=== PATIENT | female | born 1955 | race Caucasian/White ===

== ENCOUNTER 2021-03-27 13:55 | Inpatient (IN) | payer BC ==
--- NOTE | 2021-03-27 14:08 | EDM.PDOC ---
ED HPI GENERAL MEDICAL PROBLEM - General Chief Complaint: Trauma Stated Complaint: FELL OFF LADDER Time Seen by Provider: 03/27/21 13:55 Source of Information: Reports: Patient, EMS History Limitations: Reports: No Limitations - History of Present Illness INITIAL COMMENTS - FREE TEXT/NARRATIVE: 65-year-old female was on a ladder, reaching up to "grab some tape", and fell backwards off the ladder landing on her back onto a carpeted cement floor. She struck the back of her head hard, as well as the posterior aspect of both elbows. According to the she was unconscious for up to 3 minutes. EMS was called, she was C-collared and brought in for evaluation, she is now alert and oriented with a GCS of 15. Her main complaint is posterior head pain, mild neck stiffness, and soreness especially on the posterior aspect of the left elbow. Denies any shortness of breath, chest pain, abdominal pain, lower extremity pain. She has had 1 emesis and received Zofran in route. Onset: Sudden Duration: Hour(s): (Within the last hour) Location: Reports: Head, Neck, Upper Extremity, Left, Upper Extremity, Right Associated Symptoms: Reports: Headaches, Nausea/Vomiting 2 Pain Score (Numeric/FACES): 2 Headache Pain Score (Numeric/FACES): 1 neck Pain Score (Numeric/FACES): 1 - Related Data Allergies Allergy/AdvReac Type Severity Reaction Status Date / Time ciprofloxacin Allergy Severe Anaphylactic Verified 03/28/21 08:15 Shock codeine Allergy Severe Anaphylactic Verified 03/27/21 18:59 Shock hydrocodone [Hydrocodone] Allergy Severe Anaphylactic Verified 03/27/21 18:59 Shock hydrocodone bitartrate Allergy Severe Anaphylactic Verified 03/27/21 18:59 [From Vicodin] Shock hydromorphone HCl Allergy Severe Anaphylactic Verified 03/27/21 18:59 [From Dilaudid] Shock morphine Allergy Severe Anaphylactic Verified 03/27/21 18:59 Shock Home Meds: Home Meds Ascorbate Calcium/Bioflavonoid [Pretty-C 500 MG] 1 tab PO BID 04/08/20 [History] Aspirin [Halfprin] 81 mg PO DAILY 04/08/20 [History] Calcium Carb,Cit/D3/Phytostrol [Citracal D + Heart Health] 1 tab PO BID 04/08/20 [History] Cholecalciferol (Vitamin D3) [Vitamin D3] 5,000 unit PO BID 04/08/20 [History] Chondroitin/Glucosamine [Glucosamine-Chondroitin] 2 cap PO DAILY 04/08/20 [History] Citalopram Hydrobromide [Celexa] 40 mg PO DAILY 04/08/20 [History] Cyclobenzaprine HCl 10 mg PO TID PRN 04/08/20 [History] Docusate Sodium [Colace] 100 mg PO DAILY 04/08/20 [History] Levothyroxine [Synthroid] 50 mcg PO DAILY 04/08/20 [History] Lysine HCl [l-Lysine] 500 mg PO BID 04/08/20 [History] Niacin [Niacor] 500 mg PO BID 04/08/20 [History] [place] Red 1 tab PO DAILY 04/08/20 [History] Turmeric Root Extract [Turmeric] 500 mg PO BID 04/08/20 [History] Ubidecarenone [Coenzyme Q10] 200 mg PO DAILY 04/08/20 [History] Vitamin B Complex [Ultra B-100 Complex] 1 each PO DAILY 04/08/20 [History] atorvaSTATin Calcium [Atorvastatin Calcium] 10 mg PO BEDTIME 04/08/20 [History] sulfaSALAzine [Azulfidine] 1,500 mg PO DAILY 04/08/20 [History] sulfaSALAzine [Azulfidine] 1,000 mg PO QPM 03/28/21 [History] Past Medical History [facility] History: Reports: Musculoskeletal History: Reports: Other (See Below) Other Musculoskeletal History: left knee pain. right shoulder pain - Past Surgical History Musculoskeletal Surgical History: Reports: None Social & Family History - Caffeine Use Caffeine Use: Reports: Soda Review of Systems - Review of Systems Review Of Systems: See Below Eyes: Denies: Vision Change Ears: Reports: Dizziness Mouth/Throat: Reports: No Symptoms Respiratory: Denies: Shortness of Breath Cardiovascular: Denies: Chest Pain GI/Abdominal: Reports: Nausea, Vomiting. Denies: Abdominal Pain Musculoskeletal: Reports: Neck Pain (Mild diffuse neck discomfort), Other (Bilateral elbow pain, left worse than the right.) Skin: Reports: Other (Abrasions are present on both elbows, left greater than right) Neurological: Reports: Confusion, Dizziness, Headache, Other (Loss of consciousness for up to 3 minutes after head injury) Psychiatric: Reports: No Symptoms ED EXAM, GENERAL - Physical Exam Exam: See Below Exam Limited By: No Limitations General Appearance: Alert, No Apparent Distress, Other (Looks uncomfortable but not distressed, currently oriented with a GCS of 15) Eye Exam: Bilateral Eye: EOMI, PERRL Ears: Normal TMs Head: Other (Patient has a 6 cm fairly deep, somewhat irregular laceration on the left occipital scalp) Neck: Other (Mild tenderness to palpation in range of motion, no focal tenderness) Respiratory/Chest: No Respiratory Distress, Lungs Clear Cardiovascular: Regular Rate, Rhythm GI/Abdominal: Soft, Non-Tender Extremities: Other (Patient has abrasion and some mild swelling over the olecranon on the left elbow, no significant bony tenderness or deformity. There is also a small abrasion on the right elbow, also no bony tenderness) Neurological: Alert, Oriented, Slow to Respond Psychiatric: Flat Affect Skin Exam: Warm, Dry, Other (Skin is otherwise normal besides the abrasions on the elbows and the fairly large laceration on the scalp) Course - Vital Signs Last Recorded V/S: Last Vital Signs Temp 98.8 F 03/28/21 08:00 Pulse 82 03/28/21 10:00 Resp 18 03/28/21 10:00 BP 141/79 H 03/28/21 10:00 Pulse Ox 95 03/28/21 10:00 - Orders/Labs/Meds Orders: Medication Orders Acetaminophen (Acetaminophen 500 Mg Tab) 1,000 mg PO Q4H PRN PRN Reason: Pain Last Admin: 03/28/21 08:15 Dose: 1,000 mg Documented by: Admin: 03/27/21 20:54 Dose: 1,000 mg Documented by: ANGELA Atorvastatin Calcium (Atorvastatin 10 Mg Tab) 10 mg PO BEDTIME [facility] Citalopram Hydrobromide (Citalopram 20 Mg Tab) 40 mg PO DAILY [facility] Last Admin: 03/28/21 08:12 Dose: 40 mg Documented by: GERMANIA Levothyroxine Sodium (Levothyroxine 50 Mcg Tab) 50 mcg PO ACBREAKFAST [facility] Last Admin: 03/28/21 08:12 Dose: 50 mcg Documented by: GERMANIA Loratadine (Loratadine 10 Mg Tab) 10 mg PO DAILY [facility] Last Admin: 03/28/21 08:15 Dose: Not Given Documented by: GERMANIA Sulfasalazine (Sulfasalazine 500 Mg Tab) 1,500 mg PO DAILY [facility] Last Admin: 03/28/21 09:29 Dose: 1,500 mg Documented by: GERMANIA Sulfasalazine (Sulfasalazine 500 Mg Tab) 1,000 mg PO QPM [facility] Meds: Medications Generic Name Dose Route Start Last Admin Trade Name Jose PRN Reason Stop Dose Admin Acetaminophen 1,000 mg 03/27/21 20:14 03/28/21 08:15 Acetaminophen 500 Mg Tab PO 1,000 mg Q4H PRN Administration Pain Atorvastatin Calcium 10 mg 03/28/21 21:00 Atorvastatin 10 Mg Tab PO BEDTIME [facility] Citalopram Hydrobromide 40 mg 03/28/21 09:00 03/28/21 08:12 Citalopram 20 Mg Tab PO 40 mg DAILY [facility] Administration Levothyroxine Sodium 50 mcg 03/28/21 07:30 03/28/21 08:12 Levothyroxine 50 Mcg Tab PO 50 mcg ACBREAKFAST [facility] Administration Loratadine 10 mg 03/28/21 09:00 03/28/21 08:15 Loratadine 10 Mg Tab PO Not Given DAILY [facility] Sulfasalazine 1,500 mg 03/28/21 09:00 03/28/21 09:29 Sulfasalazine 500 Mg Tab PO 1,500 mg DAILY [facility] Administration Sulfasalazine 1,000 mg 03/28/21 17:00 Sulfasalazine 500 Mg Tab PO QPM [facility] Discontinued Medications Generic Name Dose Route Start Last Admin Trade Name Jose PRN Reason Stop Dose Admin Aspirin 81 mg 03/28/21 09:00 03/28/21 08:13 Aspirin 81 Mg Tab.Ec PO 81 mg DAILY [facility] Administration Citalopram Hydrobromide 40 mg 03/27/21 16:38 03/27/21 19:55 Citalopram 20 Mg Tab PO 03/27/21 16:39 Not Given ONETIME ONE Citalopram Hydrobromide Confirm 03/27/21 21:19 03/27/21 22:11 Citalopram 20 Mg Tab Administered 03/27/21 21:20 40 mg Dose Administration 40 mg .ROUTE .STK-MED ONE Metoclopramide HCl 5 mg 03/27/21 16:33 03/27/21 16:42 Metoclopramide 10 Mg/2 Ml Sdv IVPUSH 03/27/21 16:34 5 mg ONETIME ONE Administration Non-Formulary Medication 40 mg 03/27/21 17:45 03/27/21 22:13 Citalopram Hydrobromide [Celexa] PO Not Given DAILY [facility] Ondansetron HCl 4 mg 03/27/21 14:57 03/27/21 15:05 Ondansetron 4 Mg/2 Ml Sdv IVPUSH 03/27/21 14:58 4 mg ONETIME ONE Administration Sulfasalazine 1,500 mg 03/27/21 16:38 03/27/21 19:55 Sulfasalazine 500 Mg Tab PO 03/27/21 16:39 Not Given ONETIME ONE - Re-Assessments/Exams Free Text/Narrative Re-Assessment/Exam: 03/27/21 15:[address], 4 mg of additional Zofran was given and a CT of the head and cervical spine was ordered. On return from CT scan, the original screen of the cervical spine looked negative so cervical collar was removed. Head CT results are as follows IMPRESSION: Right intraparenchymal contrecoup injury related to large left high posterior parietal scalp laceration and hematoma. Small amount of subarachnoid hemorrhage in the right sylvian cistern. Mild right mid and anterior parietal acute subdural hematoma. Mild right inferior frontal hemorrhagic contusion with mild inferior frontal subdural hematoma. Mild anterior falcine and right tentorial subdural hematomas. No sign of any mass effect related to these hemorrhages. Images were sent to [facility] to be evaluated and reviewed by neuros urgery. Hair was trimmed back from the edges of the laceration, 1% lidocaine with epinephrine was used to thoroughly anesthetize the laceration on her scalp, and normal saline was used to flush the clots out of the laceration and clean the edges of the wound. Four 4-0 Vicryl sutures were used to close the subcutaneous tissue, and 1 running 4-0 suture with 8 interlocking sutures were used to close the outside of the laceration. A mild pressure dressing was applied, still awaiting neurosurgery evaluation. Patient remained stable. Cervical spine CT results negative. Neurosurgery recommended observation and repeat CT scan tomorrow. Dr. Spangler accepted admission to hospitalist service Departure - Departure Time of Disposition: 18:14 Disposition: Admitted As Inpatient 67 Clinical Impression: Concussion with brief (less than one hour) loss of consciousness, Cerebral h emorrhage, Subdural hemorrhage Scalp laceration Qualifiers: Encounter type: initial encounter Qualified Code(s): S01.01XA - Laceration without foreign body of scalp, initial encounter - Discharge Information
[2021-03-27] MEDS ORDERED: Ondansetron 4 MG/2 ML SDV IVPUSH ONE (14:57)
--- NOTE | 2021-03-27 14:58 | CRLCT ---
For Patients: As a result of the Century Cures Act, medical imaging exams and procedure reports are released immediately into your electronic medical record. You may view this report before your referring provider. If you have questions, please contact your health care provider. INDICATION: Pain after fall from ladder. COMPARISON: None available. TECHNIQUE: CT examination of the head was performed with 2 and 3 mm thick axial and 2 mm thick sagittal and coronal sections without intravenous contrast. Images were obtained from the vertex of the skull through the skull base, and I examined the images with the brain and bone windows. Please note that all CT scans at this facility use dose modulation, iterative reconstruction, and/or weight-based dosing when appropriate to reduce radiation dose to as low as reasonably achievable. FINDINGS: : There is large laceration and hematoma involving the left posterior parietal scalp with gas and blood in the external subgaleal space. There is no sign of fracture of the underlying brain. There is no sign of injury to the brain immediately deep to the laceration and hematoma. There is a small amount of subarachnoid hemorrhage located within the posterior and medial right sylvian cistern. This produces no mass effect. There is a mild acute right mid parietal and right frontal subdural hematoma, measuring up to 3 millimeters in greatest thickness, producing no mass effect. There are small, acute anterior falx and right tentorial subdural hematomas, producing mass effect. There is minimal high density in the inferior medial right frontal lobe, overlying the right orbital roof, findings of a minimal hemorrhagic contusion. There is also subdural blood in this region. There is no sign of any mass effect from these hemorrhages. The ventricles and sulci are normal in appearance for the patient`s age. The visualized portions of the orbits are normal in appearance. The visualized portions of the paranasal sinuses and mastoids are clear. The osseous structures are normal in their appearance with no sign of abnormality in the skull base or calvarium. I discussed the findings with Dr. Baker at 1450 hours on 03/27/2021. IMPRESSION: Right intraparenchymal contrecoup injury related to large left high posterior parietal scalp laceration and hematoma. Small amount of subarachnoid hemorrhage in the right sylvian cistern. Mild right mid and anterior parietal acute subdural hematoma. Mild right inferior frontal hemorrhagic contusion with mild inferior frontal subdural hematoma. Mild anterior falcine and right tentorial subdural hematomas. No sign of any mass effect related to these hemorrhages. Please note that all CT scans at this facility use dose modulation, iterative reconstruction, and/or weight-based dosing when appropriate to reduce radiation dose to as low as reasonably achievable. Dictated by Daniel Vazquez MD @ 03/27/2021 2:55:[address] Daniel Vazquez @ Mar 27 2021 2:55PM
--- NOTE | 2021-03-27 15:02 | CRLCT ---
For Patients: As a result of the Century Cures Act, medical imaging exams and procedure reports are released immediately into your electronic medical record. You may view this report before your referring provider. If you have questions, please contact your health care provider. INDICATION: Pain after fall from ladder. COMPARISON: CT of the head from today. TECHNIQUE: CT examination of the cervical spine is performed without contrast using spiral technique. 2 mm thick axial, sagittal and coronal reconstructions were made. Please note that all CT scans at this facility use dose modulation, iterative reconstruction, and/or weight-based dosing when appropriate to reduce radiation dose to as low as reasonably achievable. FINDINGS: : There is straightening of the cervical spine which may be the result of muscular spasm or positioning for the examination. There is minimal anterior subluxation of C4 on C5 which is probably chronic. No degenerative changes are seen at this level. There is no sign of any prevertebral soft tissue swelling at this level. The rest of the cervical vertebral bodies are in anatomic alignment with no additional subluxation. There is no sign of prevertebral soft tissue swelling elsewhere in the cervical spine. There is mild C5-6 and C6-7 disc degenerative disease. The rest of the intervertebral discs are normal in height. 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 The airway structures are normal in appearance. The visualized skull base is normal in appearance. The areas of subtle intracranial hemorrhage are much more clearly evident on today`s accompanying CT of the head. The apices of the lungs are clear. IMPRESSION: No sign of acute osseous injury to the cervical spine. Minimal anterior subluxation of C4 on C5 which is probably chronic, with no sign of any soft tissue swelling at this region. Mild C5-6 and C6-7 disc degenerative disease. Please note that all CT scans at this facility use dose modulation, iterative reconstruction, and/or weight-based dosing when appropriate to reduce radiation dose to as low as reasonably achievable. Dictated by Daniel Vazquez MD @ 03/27/2021 2:59:[address] Daniel Vazquez @ Mar 27 2021 2:59PM
[2021-03-27] MEDS ORDERED: Metoclopramide 10 MG/2 ML SDV IVPUSH ONE (16:33)
[2021-03-27] MEDS ORDERED: Citalopram 20 MG Tab PO ONE (16:38)
[2021-03-27] MEDS ORDERED: sulfaSALAzine 500 MG Tab PO ONE (16:38)
[2021-03-27] MEDS ORDERED: Non-Formulary Medication 1 Each (Citalopram Hydrobromide [Celexa] 40 MG Tablet) PO SCH (17:45)
--- NOTE | 2021-03-27 18:02 | PCM.HP.2 ---
H&P History of Present Illness - General Date of Service: 03/27/21 Admit Problem/Dx: Admission Diagnosis/Problem Admission Diagnosis/Problem Head injury with loss of consciousness Source of Information: Patient, Family History Limitations: Reports: Other (Limited history due to loss of consciousness during event and possible retrograde amnesia) - History of Present Illness Initial Comments - Free Text/Narative: Ms. Lieberman is a 65-year-old white female who was getting up onto a counter to get on a ladder to "grab some tape". The next thing you know she was on her back on a carpeted cement floor. Nobody witnessed her fall however her did hear her scream from the other room. He states that she was unconscious for around 3 to 4 minutes. She does not remember falling. EMS was called, she was placed in a c-collar, at that time she had a GCS of 15. She was brought into the ED complaining of head pain, mild neck stiffness, and soreness especially on the posterior aspect of the left elbow. She was found to have a large laceration to the left posterior parietal scalp that had to be sutured. The left elbow was x-rayed and does not appear to show a fracture however it does show extensive swelling at the olecranon. She did have an episode of emesis while in route to the ED and was given Zofran. CT of the head showed a right intraparenchymal could countercoup injury related to a large left high posterior parietal scalp laceration and hematoma. A small amount of subarachnoid hemorrhage in the right sylvian cistern. Several areas that represent mild subdural hematomas on the right and anterior regions that do not show mass-effect. Dr. Baker in the ED contacted neurosurgery in [place] at [facility] and had them review her CT scan. They advised that she have a repeat CT in the morning and every neuro checks. They stated that if anything in her neurochecks changed or if the CT had any changes that she needs to be sent immediately to them. She denies any symptoms prior to the fall including headache, change in vision, shortness of breath, dizziness, and palpitations. She indicates that this was a mechanical fall. On examination she does have pain in the bilateral elbows with bruising to both elbows and a scabbed lesion to the left elbow. She has a bruise on the right knee. Her lower lip is swollen and has lacerations along the inside that are not bleeding. She has a large sutured lesion to the posterior parietal scalp. She states that she is having significant neck pain. She also continues to have nausea, she has not vomited since being in the ER. She did have a moment of staring off during our conversation. She has no limb weakness, cranial nerves are intact. Pupils are equal, round, and reactive to light. She is oriented to person, place, and time. Registration is intact, language is intact. At the time of exam for admission her GCS was 15. She will be admitted for every neurochecks and a repeat CT at 12 hours which will be 2 AM. 2 Pain Score (Numeric/FACES): 2 - Related Data Allergies/Adverse Reactions: Allergies Allergy/AdvReac Type Severity Reaction Status Date / Time acetaminophen [From Vicodin] Allergy Severe Respiratory Verified 03/27/21 14:32 Depression codeine Allergy Severe Respiratory Verified 03/27/21 14:32 Depression hydrocodone [Hydrocodone] Allergy Severe Respiratory Verified 03/27/21 14:32 Depression hydrocodone bitartrate Allergy Severe Respiratory Verified 03/27/21 14:32 [From Vicodin] Depression hydromorphone HCl Allergy Severe Respiratory Verified 03/27/21 14:32 [From Dilaudid] Depression morphine Allergy Severe Respiratory Verified 03/27/21 14:32 Depression ciprofloxacin Allergy Other Verified 03/27/21 14:32 Home Medications: Home Meds Ascorbate Calcium/Bioflavonoid [Pretty-C 500 MG] 1 tab PO BID 04/08/20 [History] Aspirin [Halfprin] 81 mg PO DAILY 04/08/20 [History] Calcium Carb,Cit/D3/Phytostrol [Citracal D + Heart Health] 1 tab PO BID 04/08/20 [History] Cholecalciferol (Vitamin D3) [Vitamin D3] 5,000 unit PO BID 04/08/20 [History] Chondroitin/Glucosamine [Glucosamine-Chondroitin] 2 cap PO DAILY 04/08/20 [History] Citalopram Hydrobromide [Celexa] 40 mg PO DAILY 04/08/20 [History] Cyclobenzaprine HCl 10 mg PO TID PRN 04/08/20 [History] Docusate Sodium [Colace] 100 mg PO DAILY 04/08/20 [History] Levothyroxine [Synthroid] 50 mcg PO DAILY 04/08/20 [History] Lysine HCl [l-Lysine] 500 mg PO BID 04/08/20 [History] Niacin [Niacor] 500 mg PO BID 04/08/20 [History] [place] Red 1 tab PO DAILY 04/08/20 [History] Turmeric Root Extract [Turmeric] 500 mg PO BID 04/08/20 [History] Ubidecarenone [Coenzyme Q10] 200 mg PO DAILY 04/08/20 [History] Vitamin B Complex [Ultra B-100 Complex] 1 each PO DAILY 04/08/20 [History] atorvaSTATin Calcium [Atorvastatin Calcium] 20 mg PO DAILY 04/08/20 [History] sulfaSALAzine [Azulfidine] 500 mg PO DAILY 04/08/20 [History] Past Medical History [employer] History: Reports: Musculoskeletal History: Reports: Other (See Below) Other Musculoskeletal History: left knee pain. right shoulder pain - Past Surgical History Musculoskeletal Surgical History: Reports: None Social & Family History - Tobacco Use Tobacco Use Status *Q: Never Tobacco User - Caffeine Use Caffeine Use: Reports: Soda H&P Review of Systems - Review of Systems: Review Of Systems: Comprehensive ROS is negative, except as noted in HPI. Gastrointestinal: Reports: Nausea Neurological: Reports: Headache. Denies: Trouble Speaking, Weakness, Change in Speech Exam - Exam Exam: See Below - Vital Signs Vital Signs: Last Vital Signs Temp 97.2 F 03/27/21 14:58 Pulse 94 03/27/21 16:36 Resp 11 L 03/27/21 16:36 BP 183/88 H 03/27/21 16:36 Pulse Ox 93 L 03/27/21 15:51 Weight: 178 lb - Exam General: Alert, Oriented, Cooperative, Mild Distress HEENT: PERRLA, Conjunctiva Clear, EOMI, Hearing Intact, Mucosa Moist & [place], Nares Patent, Other (Edema of the lower lip with lacerations to the inside of the lip that are not actively bleeding) Neck: Trachea Midline, Other (Tender) Lungs: Clear to Auscultation, Normal Respiratory Effort Cardiovascular: Regular Rate, Regular Rhythm GI/Abdominal Exam: Normal Bowel Sounds, Soft, Non-Tender, No Distention Back Exam: Normal Inspection Extremities: Normal Inspection, Non-Tender, No Pedal Edema. No: Joint Swelling Skin: Warm, Dry, Intact, Ecchymosis (Bilateral elbows) Neurological: Cranial Nerves Intact, Strength Equal Bilateral, Normal Speech, Normal Tone. No: Focal Deficit Neuro Extensive - Mental Status: Alert, Oriented x3, Normal Mood/Affect, Normal Cognition, Memory Intact Neuro Extensive - Motor, Sensory, Reflexes: CN II-XII Intact Psychiatric: Alert, Normal Affect, Normal Mood Sepsis Event Note - Evaluation Sepsis Screening Result: No Definite Risk - Focused Exam Vital Signs: Vital Signs Temp Pulse Resp BP Pulse Ox 03/27/21 16:36 94 11 L 183/88 H 03/27/21 16:06 90 16 159/88 H 03/27/21 15:51 91 10 L 183/90 H 93 L 03/27/21 15:37 92 10 L 177/98 H 96 03/27/21 15:21 86 10 L 154/80 H 100 03/27/21 15:06 86 9 L 151/71 H 94 L 03/27/21 14:58 97.2 F 94 14 151/89 H 99 03/27/21 14:51 90 12 128/74 94 L - Problem List (1) Head injury, acute, with loss of consciousness SNOMED Code(s): 605264190, 520304631 ICD Code: S06.9X9A - UNSP INTRACRANIAL INJURY W LOC OF UNSP DURATION, INIT Status: Acute Current Visit: Yes Qualifiers: Encounter type: initial encounter Qualified Code(s): S06.9X9A - Unspecified intracranial injury with loss of consciousness of unspecified duration, initial encounter (2) Subdural hematoma due to concussion SNOMED Code(s): 816045843 ICD Code: S06.5X9A - TRAUM SUBDR HEM W LOC OF UNSP DURATION, INIT Status: Acute Current Visit: Yes Qualifiers: Loss of consciousness presence/duration: with LOC of 30 min or less (3) Subarachnoid hemorrhage following injury with brief loss of consciousness but without open intracranial wound SNOMED Code(s): 190505540611911, 359906416458385 ICD Code: S06.6X9A - TRAUM SUBRAC HEM W LOC OF UNSP DURATION, INIT Status: Acute Current Visit: Yes Problem List Initiated/Reviewed/Updated: Yes Orders Last 24hrs: Active Orders 24 hr Category Date Time Status Patient Status [ADT] Routine ADT 03/27/21 17:14 Active Neurological Monitoring [RC] Q1HR Care 03/27/21 17:43 Active Oxygen Therapy [RC] PRN Care 03/27/21 17:14 Active VTE/DVT Education [RC] Per Unit Routine Care 03/27/21 17:14 Active Vital Signs [RC] Q4H Care 03/27/21 17:14 Active Elbow Min 3V Lt [CR] Stat Exams 03/27/21 14:16 Taken Head wo Cont [CT] Stat Exams 03/28/21 02:00 Ordered Aspirin [Halfprin] Med 03/28/21 09:00 Active 81 mg PO DAILY Citalopram Hydrobromide [Celexa] Med 03/27/21 17:45 Active 40 mg PO DAILY Levothyroxine [Synthroid] Med 03/28/21 09:00 Active 50 mcg PO DAILY Loratadine [Claritin] Med 03/28/21 09:00 Active 10 mg PO DAILY atorvaSTATin [Lipitor] Med 03/28/21 09:00 Active 10 mg PO DAILY sulfaSALAzine Med 03/28/21 09:00 Active 500 mg PO DAILY Resuscitation Status Routine Resus Stat 03/27/21 17:14 Ordered Medication Orders Aspirin (Aspirin 81 Mg Tab.Ec) 81 mg PO DAILY [facility] Atorvastatin Calcium (Atorvastatin 20 Mg Tab) 10 mg PO DAILY [facility] Levothyroxine Sodium (Levothyroxine 50 Mcg Tab) 50 mcg PO DAILY [facility] Loratadine (Loratadine 10 Mg Tab) 10 mg PO DAILY BRITT[facility] Non-Formulary Medication (Citalopram Hydrobromide [Celexa]) 40 mg PO DAILY [facility] Sulfasalazine (Sulfasalazine 500 Mg Tab) 500 mg PO DAILY [facility]/Plan Comment:: Head injury with 3 to 4-minute loss of consciousness secondary to mechanical fall Multiple subdural hematomas, who countercoup injury, small subarachnoid hemorrhage -Every neurochecks -Repeat CT at 2 AM -If anything changes in her neuro checks or CT she will be immediately transferred to [facility] for neurosurgery -I have spoken with the and son regarding this as well as the patient -Currently n.p.o., Zofran as needed for nausea Left elbow contusion, neck pain secondary to fall -Tylenol as needed for pain -If Tylenol does not cover her pain she will not be able to get any opiate medications as they can alter the [employer] system, will reassess after CT if stable and still in pain Depression -Home dose citalopram 40 mg daily Arthritis -Home dose sulfasalazine 500 mg daily Hypothyroidism -Home dose levothyroxine 50 mcg daily Allergies -Home dose loratadine 10 mg daily ASCVD prevention -Aspirin 81 mg daily, atorvastatin 10 mg daily Patient takes a large amount of supplements at home these will be held during her stay unless she wants family to bring them in. Plan: Monitor every hour for neurologic changes, repeat CT at 2 AM, transfer to [facility] if anything changes. VTE prophylaxis: Contraindicated GI prophylaxis: Not indicated Diet: N.p.o. due to nausea and head injury CODE STATUS: Full code Admission statement: This patient is admitted for inpatient services and is medically appropriate and meets medical necessity for inpatient admission. I reasonably expect the patient will require inpatient services that span a period of over 2 midnights. My rationale for medically necessary inpatient care can be found above. I reasonably expect the patient to be discharged or transferred within 96 hours after admission to this critical [facility]. Viola Spangler, DO - Mortality Measure Prognosis:: Good
[2021-03-27] MEDS: Acetaminophen 500 MG Tab PO PRN (20:54)
[2021-03-27] MEDS ORDERED: Citalopram 20 MG Tab ONE (21:19)
--- NOTE | 2021-03-27 22:57 | CRLCT ---
For Patients: As a result of the Cures Act, medical imaging exams and procedure reports are released immediately into your electronic medical record. You may view this report before your referring provider. If you have questions, please contact your health care provider. INDICATION: Fall from ladder. Follow-up intracranial hemorrhage. CT HEAD WITHOUT CONTRAST TECHNIQUE: Multiple axial CT images were performed through the head without intravenous contrast administration. COMPARISON: 2:14 p.m. 03/27/[address] FINDINGS: There has been no significant change in small areas of acute subdural hematoma along the lateral convexity of the right cerebral hemisphere measuring up to 3 millimeters in thickness. Similarly, the small hemorrhagic contusion involving the anteroinferior right frontal lobe, mild subarachnoid hemorrhage within the right sylvian fissure, and trace subdural hematoma in the anterior interhemispheric fissure and along the right tentorium do not appear significantly changed. Mild subarachnoid hemorrhage in the posterior fossa along the falx cerebelli and blood in the inferior aspect of the 4th ventricle appear less prominent than before. There is no mass effect or midline shift. Ventricles are normal in size and configuration. No significant change in left parietal scalp hematoma. Osseous structures are within normal limits and no fractures are seen. Included portions of the paranasal sinuses and mastoid air cells are normally aerated. IMPRESSION: 1. Stable small acute subdural hematoma over the lateral convexity of the right cerebral hemisphere, 3 millimeters in thickness. 2. Stable small hemorrhagic contusion of the anteroinferior right frontal lobe. 3. Unchanged mild subarachnoid hemorrhage in the right sylvian fissure and trace subdural hematomas in the anterior interhemispheric fissure and along the right tentorium. 4. Mildly decreased subarachnoid hemorrhage in the posterior fossa along the falx cerebelli and decreased mild hemorrhage in the inferior aspect of the 4th ventricle. МАРИНА BAUM MD [employer] Dictated by Tez Baum MD @ 03/27/2021 10:52:55 PM Please note that all CT scans at this facility use dose modulation, iterative reconstruction, and/or weight-based dosing when appropriate to reduce radiation dose to as low as reasonably achievable. Dictated by: Tez Baum MD @ 03/27/2021 22:56:49 (Electronically Signed)
[2021-03-28] MEDS ORDERED: Levothyroxine 50 MCG Tab PO SCH (07:30)
[2021-03-28] MEDS: Acetaminophen 500 MG Tab PO PRN (08:15)
[2021-03-28] MEDS ORDERED: sulfaSALAzine 500 MG Tab PO SCH ×3 (09:00→17:00)
[2021-03-28] MEDS ORDERED: Loratadine 10 MG Tab PO SCH (09:00)
[2021-03-28] MEDS ORDERED: Aspirin 81 MG Tab.EC PO SCH (09:00)
[2021-03-28] MEDS ORDERED: Citalopram 20 MG Tab PO SCH (09:00)
--- NOTE | 2021-03-28 11:04 | CR ---
Elbow Min 3V Lt CLINICAL HISTORY: Pain, fall FINDINGS: No acute fracture or dislocation is noted. The fat pads are in normal position. Impression: Negative
[2021-03-28 12:06] VITALS: BP 121/67
[2021-03-28 13:38] VITALS: PULSE 75
--- NOTE | 2021-03-28 14:37 | PCM.DCSUM1 ---
Discharge Summary - Hospital Course Brief History: Ms. Thomas is a 65-year-old woman who was admitted to observation status through the emergency department following a closed head injury with loss of consciousness. Resulting in small subdural hematomas and subarachnoid hemorrhage. - Discharge Data Discharge Date: 03/28/21 Discharge Disposition: Home, Self-Care 01 Condition: Stable - Referral to Home Health Primary Care Physician: Arlen Nino PA-C - Discharge Diagnosis/Problem(s) (1) Concussion with brief (less than one hour) loss of consciousness Status: Acute Current Visit: Yes (2) Cerebral hemorrhage SNOMED Code(s): 341348760 ICD Code: I61.9 - NONTRAUMATIC INTRACEREBRAL HEMORRHAGE, UNSPECIFIED Status: Acute Current Visit: Yes (3) Subdural hemorrhage SNOMED Code(s): 759984405 ICD Code: I62.00 - NONTRAUMATIC SUBDURAL HEMORRHAGE, UNSPECIFIED Status: Acute Current Visit: Yes (4) Head injury, acute, with loss of consciousness SNOMED Code(s): 516234095, 372100841 ICD Code: S06.9X9A - UNSP INTRACRANIAL INJURY W LOC OF UNSP DURATION, INIT Status: Acute Current Visit: Yes Qualifiers: Encounter type: initial encounter Qualified Code(s): S06.9X9A - Unspecified intracranial injury with loss of consciousness of unspecified duration, initial encounter (5) Subarachnoid hemorrhage following injury with brief loss of consciousness but without open intracranial wound SNOMED Code(s): 689607694449060, [id number] ICD Code: S06.6X9A - TRAUM SUBRAC HEM W LOC OF UNSP DURATION, INIT Status: Acute Current Visit: Yes - Patient Summary/Data Hospital Course: Ms. Lieberman is a 65-year-old white female who was getting up onto a counter to get on a ladder to "grab some tape". The next thing you know she was on her back on a carpeted cement floor. Nobody witnessed her fall however her did hear her scream from the other room. He states that she was unconscious for around 3 to 4 minutes. She does not remember falling. EMS was called, she was placed in a c-collar, at that time she had a GCS of 15. She was brought into the ED complaining of head pain, mild neck stiffness, and soreness especially on the posterior aspect of the left elbow. She was found to have a large laceration to the left posterior parietal scalp that had to be sutured. The left elbow was x- rayed and does not appear to show a fracture however it did show extensive swelling at the olecranon. She did have an episode of emesis while in route to the ED and was given Zofran. CT of the head showed a right intraparenchymal could countercoup injury related to a large left high posterior parietal scalp laceration and hematoma. A small amount of subarachnoid hemorrhage in the right sylvian cistern. Several areas that represent mild subdural hematomas on the right and anterior regions that do not show mass-effect. Dr. Baker in the ED contacted neurosurgery in [place] at [facility] and had them review her CT scan. They advised that she have a repeat CT in the morning and every 2 hour neuro checks. They stated that if anything in her neurochecks changed or if the CT had any changes that she needs to be sent immediately to them. She denies any symptoms prior to the fall including headache, change in vision, shortness of breath, dizziness, and palpitations. The evening after admission she was straining for a bowel movement and after that experienced increased nausea. CT scan was obtained and appeared to be stable to somewhat improved when compared to the previous CT scan. On the day of discharge she reported ongoing neck pain which is a chronic problem for her. CT scan of the neck had been obtained in the emergency department and showed no fractures or acute injuries. Other than some ongoing headache she denied any new neurologic symptoms or deficits. On examination she appeared to be neurologically intact. Nausea had improved but not totally resolved and she was able to eat and take in liquids. She was able to transfer independently and walk short distances in the hallway without difficulty. She will be discharged home, activity will be as tolerated and she will resume her usual diet. Follow-up appointment will be scheduled within 1 week with her primary care provider. Outpatient neurosurgical consult will be scheduled for [address] scan to be obtained at that time. She will return immediately to the emergency department with any new neurologic symptoms or other changes. - Patient Instructions Diet: Usual Diet as Tolerated Activity: No Lifting Over 10 Pounds, No Strenuous Activities Other/Special Instructions: Please schedule follow-up appointment with primary care provider within 1 week. Please schedule outpatient neurosurgical consult in 2 weeks, for follow-up of subarachnoid hemorrhage and subdural hematoma. CT scan should be obtained at the time of that follow-up appointment. - Discharge Plan *PRESCRIPTION DRUG MONITORING PROGRAM REVIEWED*: Not Applicable *COPY OF PRESCRIPTION DRUG MONITORING REPORT IN PATIENT MARGARITO: Not Applicable Home Medications: Home Meds Ascorbate Calcium/Bioflavonoid [Pretty-C 500 MG] 1 tab PO BID 04/08/20 [History] Calcium Carb,Cit/D3/Phytostrol [Citracal D + Heart Health] 1 tab PO BID 04/08/20 [History] Cholecalciferol (Vitamin D3) [Vitamin D3] 5,000 unit PO BID 04/08/20 [History] Chondroitin/Glucosamine [Glucosamine-Chondroitin] 2 cap PO DAILY 04/08/20 [History] Citalopram Hydrobromide [Celexa] 40 mg PO DAILY 04/08/20 [History] Cyclobenzaprine HCl 10 mg PO TID PRN 04/08/20 [History] Docusate Sodium [Colace] 100 mg PO DAILY 04/08/20 [History] Levothyroxine [Synthroid] 50 mcg PO DAILY 04/08/20 [History] Lysine HCl [l-Lysine] 500 mg PO BID 04/08/20 [History] Niacin [Niacor] 500 mg PO BID 04/08/20 [History] [place] Red 1 tab PO DAILY 04/08/20 [History] Turmeric Root Extract [Turmeric] 500 mg PO BID 04/08/20 [History] Ubidecarenone [Coenzyme Q10] 200 mg PO DAILY 04/08/20 [History] Vitamin B Complex [Ultra B-100 Complex] 1 each PO DAILY 04/08/20 [History] atorvaSTATin Calcium [Atorvastatin Calcium] 10 mg PO BEDTIME 04/08/20 [History] sulfaSALAzine [Azulfidine] 1,500 mg PO DAILY 04/08/20 [History] sulfaSALAzine [Azulfidine] 1,000 mg PO QPM 03/28/21 [History] Referrals: Arlen Nino PA-C [Primary Care Provider] - - Discharge Summary/Plan Comment DC Time >30 min.: No - Patient Data Vitals - Most Recent: Last Vital Signs Temp 98.8 F 03/28/21 08:00 Pulse 75 03/28/21 13:00 Resp 18 03/28/21 13:00 BP 121/67 03/28/21 12:00 Pulse Ox 94 L 03/28/21 13:00 Weight - Most Recent: 190 lb 0.016 oz I&O - Last 24 hours: Intake & Output 03/27/21 03/28/21 03/28/21 22:59 06:59 14:59 Intake Total 50 Balance 50 Med Orders - Current: Current Medications Acetaminophen (Acetaminophen 500 Mg Tab) 1,000 mg PO Q4H PRN PRN Reason: Pain Last Admin: 03/28/21 08:15 Dose: 1,000 mg Documented by: Atorvastatin Calcium (Atorvastatin 10 Mg Tab) 10 mg PO BEDTIME [facility] Citalopram Hydrobromide (Citalopram 20 Mg Tab) 40 mg PO DAILY [facility] Last Admin: 03/28/21 08:12 Dose: 40 mg Documented by: Levothyroxine Sodium (Levothyroxine 50 Mcg Tab) 50 mcg PO ACBREAKFAST [facility] Last Admin: 03/28/21 08:12 Dose: 50 mcg Documented by: Loratadine (Loratadine 10 Mg Tab) 10 mg PO DAILY [facility] Last Admin: 03/28/21 08:15 Dose: Not Given Documented by: Sulfasalazine (Sulfasalazine 500 Mg Tab) 1,500 mg PO DAILY [facility] Last Admin: 03/28/21 09:29 Dose: 1,500 mg Documented by: Sulfasalazine (Sulfasalazine 500 Mg Tab) 1,000 mg PO QPM [facility] Discontinued Medications Aspirin (Aspirin 81 Mg Tab.Ec) 81 mg PO DAILY [facility] Last Admin: 03/28/21 08:13 Dose: 81 mg Documented by: Citalopram Hydrobromide (Citalopram 20 Mg Tab) 40 mg PO ONETIME ONE Stop: 03/27/21 16:39 Last Admin: 03/27/21 19:55 Dose: Not Given Documented by: Citalopram Hydrobromide (Citalopram 20 Mg Tab) Confirm Administered Dose 40 mg .ROUTE .STK-MED ONE Stop: 03/27/21 21:20 Last Admin: 03/27/21 22:11 Dose: 40 mg Documented by: Metoclopramide HCl (Metoclopramide 10 Mg/2 Ml Sdv) 5 mg IVPUSH ONETIME ONE Stop: 03/27/21 16:34 Last Admin: 03/27/21 16:42 Dose: 5 mg Documented by: Non-Formulary Medication (Citalopram Hydrobromide [Celexa]) 40 mg PO DAILY [facility] Last Admin: 03/27/21 22:13 Dose: Not Given Documented by: Ondansetron HCl (Ondansetron 4 Mg/2 Ml Sdv) 4 mg IVPUSH ONETIME ONE Stop: 03/27/21 14:58 Last Admin: 03/27/21 15:05 Dose: 4 mg Documented by: Sulfasalazine (Sulfasalazine 500 Mg Tab) 1,500 mg PO ONETIME ONE Stop: 03/27/21 16:39 Last Admin: 03/27/21 19:55 Dose: Not Given Documented by: - Exam General: Reports: Alert, Oriented, Cooperative, Mild Distress Lungs: Reports: Clear to Auscultation, Normal Respiratory Effort Cardiovascular: Reports: Regular Rate, Regular Rhythm, No Murmurs GI/Abdominal Exam: Soft, Non-Tender, No Organomegaly, No Distention Neurological: Reports: Normal Gait, Normal Speech, Normal Tone, Strength Equal Bilateral, Sensation Intact, Cranial Nerves Intact
[2021-03-28] MEDS ORDERED: atorvaSTATin 10 MG Tab PO SCH (21:00)
== END 2021-03-28 14:55 | disposition home or self-care (01) | DRG 55 ==
LOC: JP.ED 13:55 → JP.ICU 17:14
PROVIDERS: ADMIT Internal Medicine; ATTEND Hospitalist
DX: S06.6X1A Traumatic subarachnoid hemorrhage with loss of consciousness of 30 minutes or less, initial encounter (principal); S06.9X1A Unspecified intracranial injury with loss of consciousness of 30 minutes or less, initial encounter; W11.XXXA Fall on and from ladder, initial encounter; R40.2411 Glasgow coma scale score 13-15, in the field [EMT or ambulance]; S01.01XA Laceration without foreign body of scalp, initial encounter; S06.5X1A Traumatic subdural hemorrhage with loss of consciousness of 30 minutes or less, initial encounter; M54.2 Cervicalgia; G89.29 Other chronic pain; S50.02XA Contusion of left elbow, initial encounter; F32.9 Major depressive disorder, single episode, unspecified; M19.90 Unspecified osteoarthritis, unspecified site; E03.9 Hypothyroidism, unspecified; Z79.890 Hormone replacement therapy; Z79.899 Other long term (current) drug therapy; Z88.5 Allergy status to narcotic agent; Z88.6 Allergy status to analgesic agent; Z88.1 Allergy status to other antibiotic agents; Z79.82 Long term (current) use of aspirin
CPT/HCPCS: 12032; 70450; 72125; 73080-26-LT; 73080-LT; 96374; 96375; 99285-25; A9270-GY; J2405; J2765